=== PATIENT | male | born 1985 | race Caucasian/White ===

== ENCOUNTER 2019-07-14 20:04 | Emergency (ER) | payer MEDICAID ==
[~2019-07-14] VITALS: Ht 185.4 cm; Wt 100.0 kg
[2019-07-15 02:54] LABS: BASOPHILS % 0.2 % (0.0-2.0); EOSINOPHILS % 1.1 % (0.0-5.0); HEMATOCRIT. 39.3 % (42.0-52.0); HEMOGLOBIN. 13.1 g/dL (14.0-18.0); LYMPHOCYTES % 31.2 % (20.0-50.0); MEAN CORPUSCULAR HEMOGLOBIN 27.1 pg (28.0-32.0); MEAN CORPUSCULAR VOLUME 81.5 fL (80.0-94.0); MEAN PLATELET VOLUME 7.9 fl (7.4-10.4); MONOCYTES % 8.7 % (2.0-8.0); NEUTROPHILS % 58.8 % (40.0-76.0); PLATELET 173 x1000/uL (130-400); RED BLOOD CELL COUNT 4.82 mill/uL (4.7-6.1); RED CELL DISTRIBUTION WIDTH 14.7 % (11.6-14.6)
[2019-07-15 03:02] LABS: CHLORIDE 108 mEq/L (98-107)
[2019-07-15 03:06] LABS: ETHANOL BLOOD < 10 mg/dL
[2019-07-15 15:36] VITALS: BP 145/81
== END 2019-07-15 16:07 | disposition home or self-care (01) ==
LOC: ER 20:04
DX: F41.9 Anxiety disorder, unspecified (principal); F32.9 Major depressive disorder, single episode, unspecified; Z87.891 Personal history of nicotine dependence
CPT/HCPCS: 36415; 80048; 80307; 80320; 80329; 85025; 99285; G0480